=== PATIENT | male | born 1960 | race Caucasian/White ===

== ENCOUNTER 2021-02-19 09:38 | Outpatient (CLI) | payer BC, SELFPAY ==
--- NOTE | ~2021-02-19 | XR_ITS ---
XR lumbar spine min 4V DATE: 02/19/2021 09:57 INDICATION: Low back pain, with right sciatica. No injury. TECHNIQUE: AP, lateral, bilateral oblique, coned lateral lumbosacral views COMPARISON: None FINDINGS: No fracture or bone destruction is detected. There is moderate degenerative disc disease throughout the lumbar and lumbosacral spine. There is degenerative change of the apophyseal joints with associated grade 1 anterolisthesis at L4-5 The sacroiliac joints are normal. IMPRESSION: Moderate degenerative change Reviewed, dictated and finalized at location A.
== END 2021-02-19 09:39 | disposition home or self-care (01) ==
LOC: ANHIMG 09:42
PROVIDERS: PCP Family Medicine; Visit Provider Family Medicine
DX: M54.41 Lumbago with sciatica, right side (principal); M54.42 Lumbago with sciatica, left side; G89.29 Other chronic pain; M51.36 Other intervertebral disc degeneration, lumbar region
CPT/HCPCS: 72110

== ENCOUNTER 2021-04-12 07:18 | Outpatient (CLI) | payer BC, SELFPAY ==
--- NOTE | ~2021-04-12 | XR_ITS ---
EXAMINATION: XR shoulder LT min 2V EXAM DATE: 04/12/2021 07:55 INDICATION: M25.512 - Pain in left shoulder. TECHNIQUE: The following left shoulder projections obtained: frontal projection with internal rotatio n, frontal projection with external rotation, Grashey, and scapular Y view (4+ views). There is no p rior study for comparison. FINDINGS: No evidence of left shoulder rotator cuff calcific tendinosis. There is mild glenohumera l joint, mild acromioclavicular joint primary osteoarthritis. There are no acute fractures or disloca tions identified. There is no subcutaneous gas. The soft tissue is unremarkable. There are no rad iopaque foreign bodies. IMPRESSION: Mild left shoulder osteoarthritis. Reviewed, dictated and finalized at location A.
--- NOTE | ~2021-04-12 | XR_ITS ---
EXAMINATION: XR cervical spine min 6V EXAM DATE: 04/12/2021 07:55 INDICATION: M54.2 - Cervicalgia TECHNIQUE: Cervical spine frontal, lateral, lateral swimmers, and open-mouth odontoid projections. Additional lateral flexion and lateral extension projections obtained. Bilateral oblique projections . There are no prior studies for comparison. FINDINGS: There is moderate disc disease at C5-6 and C6-7, with significant uncovertebral joint arth ropathy causing narrowing of the neural foramen bilaterally. Less spondylosis at the other levels. Ve rtebral bodies are aligned on all the lateral projections. The odontoid process is intact. The later al masses of C1 line up with C2. Prevertebral soft tissue and pre-dens space are within normal limits . Lung apices are clear. IMPRESSION: Moderate spondylosis C5-6 and 6-7. Reviewed, dictated and finalized at location A.
== END 2021-04-12 07:19 | disposition home or self-care (01) ==
LOC: ANHIMG 07:24
PROVIDERS: PCP Family Medicine; Visit Provider Family Medicine
DX: M47.812 Spondylosis without myelopathy or radiculopathy, cervical region (principal); M19.012 Primary osteoarthritis, left shoulder
CPT/HCPCS: 72052; 73030

== ENCOUNTER → 2021-05-01 06:57 | Outpatient (CLI) | payer SELFPAY ==
--- NOTE | ~2021-05-01 | MR_ITS ---
EXAMINATION: MR cervical spine wo con EXAM DATE: 05/01/2021 07:43 INDICATION: Cervical radiculopathy, neck pain, left shoulder pain. TECHNIQUE: Multi-sequential, multiplanar MR images of the cervical spine were obtained without contra st. Axial T2, axial T2 MERGE sequence. Sagittal T1, T2, T2 fat saturation images also obtained. Th ere is no prior study for comparison. FINDINGS: There is moderate loss of these disc height from C5 through T1. The spinal cord signal int ensity and intrinsic morphology is normal. Cervicomedullary junction is normal in appearance. There a re no suspicious marrow signal abnormalities. Paraspinal soft tissue is unremarkable. Level by level evaluation: C2-C3: Disc does not extend beyond the endplate margin. Uncovertebral joint arthropathy: Mild to moderate right, mild left. Facet joint arthropathy: Moderate bilateral. Neural foraminal stenosis: Moderate right, mild left. Central canal stenosis: No stenosis. C3-C4: There is a mild diffuse disc bulge. Uncovertebral joint arthropathy: Moderate left, mild right. Facet joint arthropathy: Moderate left, mild to moderate right. Neural foraminal stenosis: Moderate to severe left, mild right. Central canal stenosis: Mild. C4-C5: Disc does not extend beyond the endplate margin. Uncovertebral joint arthropathy: Mild to moderate bilateral. Facet joint arthropathy: Mild to moderate bilateral. Neural foraminal stenosis: Mild bilateral. Central canal stenosis: No stenosis. C5-C6: There is a mild diffuse disc bulge. Uncovertebral joint arthropathy: Severe left, moderate to severe right. Facet joint arthropathy: Moderate bilateral . Neural foraminal stenosis: Moderate to severe bilateral. Central canal stenosis: Mild. C6-C7: There is a mild to moderate diffuse disc bulge. Uncovertebral joint arthropathy: Severe bilateral. Facet joint arthropathy: Mild bilateral. Neural foraminal stenosis: Severe left, moderate to severe right. Central canal stenosis: Mild to moderate . Central canal measures 7 mm in mid sagittal AP diameter . C7-T1: There is a mild diffuse disc bulge. Uncovertebral joint arthropathy: Moderate to severe left, moderate right. Facet joint arthropathy: Mild bilateral. Neural foraminal stenosis: Moderate to severe left, moderate right. Central canal stenosis: No stenosis. IMPRESSION: 1. Significant multilevel neural foraminal stenosis as detailed above. Reviewed, dictated and finalized at location A.
== END ==
PROVIDERS: PCP Family Medicine; Visit Provider Nurse Practitioner Adult Health
DX: M47.23 Other spondylosis with radiculopathy, cervicothoracic region (principal); M48.03 Spinal stenosis, cervicothoracic region
CPT/HCPCS: 72141

== ENCOUNTER 2021-06-24 08:42 | Outpatient (CLI) | payer BC, SELFPAY ==
--- NOTE | ~2021-06-24 | XR_ITS ---
EXAMINATION: XR knee RT 2V DATE: 06/24/2021 09:09 INDICATION: Right knee pain. TECHNIQUE: 2 views of right knee were obtained. COMPARISON: None. FINDINGS: Bone alignment is normal. No fracture. There is mild tricompartmental osteoarthritis charac terized by tiny osteophytes. No joint space narrowing. There is a small knee joint effusion. There is prepatellar and superficial infrapatellar bursitis. IMPRESSION: 1. Mild right knee osteoarthritis. 2. Small right knee joint effusion. Reviewed, dictated and finalized at location B. SYSTEMS ENGINEER
== END 2021-06-24 08:43 | disposition home or self-care (01) ==
PROVIDERS: PCP Family Medicine; Visit Provider Nurse Practitioner Family
DX: M25.461 Effusion, right knee (principal); M17.11 Unilateral primary osteoarthritis, right knee
CPT/HCPCS: 73560

== ENCOUNTER → 2022-06-30 16:32 | Outpatient (CLI) | payer BC, SELFPAY ==
--- NOTE | ~2022-06-30 | XR_ITS ---
EXAMINATION: XR chest 2V 06/30/2022 16:48 INDICATION: Acute bronchitis PROCEDURE: 2 view chest COMPARISON: No prior studies for comparison. FINDINGS: No focal airspace consolidation. There are bilateral symmetric nodular densities, likely pr ominent nipple shadows. Recommend repeat PA view of the chest with nipple markers. The cardiomediasti nal silhouette is within normal limits. There are no pleural effusions. There is no pneumothorax conrad spected. IMPRESSION: 1: NO ACUTE CARDIOPULMONARY DISEASE. 2: Bilateral symmetric nodular densities, likely prominent nipple shadows. Recommend repeat PA view o f the chest with nipple markers. Reviewed, dictated and finalized at location A. R OPERATOR IMPRESSION: 1: NO ACUTE CARDIOPULMONARY DISEASE. 2: Bilateral symmetric nodular densities, likely prominent nipple shadows. Carlito mmend repeat PA view of the chest with nipple markers.
== END ==
PROVIDERS: PCP Family Medicine; Visit Provider Family Medicine
DX: J20.9 Acute bronchitis, unspecified (principal); R91.8 Other nonspecific abnormal finding of lung field
CPT/HCPCS: 71046

== ENCOUNTER 2022-07-01 12:37 | Outpatient (CLI) | payer BC, SELFPAY ==
--- NOTE | ~2022-07-01 | XR_ITS ---
EXAMINATION: XR chest 1V 07/01/2022 12:52 INDICATION: Follow-up nodular density seen on prior chest PROCEDURE: PA view of the chest with nipple markers COMPARISON: 06/30/2022 FINDINGS: The lungs are clear. Bilateral nodular density seen on prior examination correspond to nipp le markers. No suspicious pulmonary nodules or masses. The cardiomediastinal silhouette is within nor mal limits. There are no pleural effusions. There is no pneumothorax suspected. IMPRESSION: 1: NO ACUTE CARDIOPULMONARY DISEASE. Reviewed, dictated and finalized at location A. OL CLERK
== END 2022-07-01 12:38 | disposition home or self-care (01) ==
LOC: ANHIMG 12:39
PROVIDERS: PCP Family Medicine; Visit Provider Family Medicine
DX: J20.9 Acute bronchitis, unspecified (principal)
CPT/HCPCS: 71045

== ENCOUNTER 2023-08-31 01:29 | Day surgery (SDC) | payer BC, SELFPAY ==
[2023-07-30 16:04] VITALS: BMI 23.9
--- NOTE | 2023-08-28 09:46 | SUR.PREOP ---
Patient called regarding upcoming procedure. Voicemail left regarding pt arrival date and time.
--- NOTE | 2023-08-29 15:01 | PM.HPGS ---
History of Present Illness History of Present Illness Consent: Risks, benefits, and alternatives have been discussed and questions answered. Patient agrees to proceed with procedure. Chief complaint: neoplasm screening Narrative: Naisr Lam is a 63 year old male referredd for colon cancer screening Review of Systems Review of Systems: All systems reviewed & are unremarkable except as noted in HPI and below PMFSH Past Medical History Medical History Abnormal fasting glucose Abnormal weight loss Acute bronchitis Chest x-ray was negative. Acute pain of left shoulder mild osteoarthritis left shoulder on x-ray on 04/12/2021 BMI 25.0-25.9,adult BMI 27.0-27.9,adult Body mass index (bmi) 26.0-26.9, adult (01/04/19) Chewing tobacco dependence (~1981) 1 pouch of red man daily since 24 years old Chronic anxiety Chronic low back pain with bilateral sciatica x-ray 02/19/2021 with moderate degenerative disc disease Chronic midline low back pain without sciatica Chronic nonallergic rhinitis Chronic nonallergic rhinitis Colon cancer screening normal colonoscopy at age 52. COVID-19 (08/24/21) positive test on 08/25/2021 Essential (primary) hypertension Essential hypertension Hypogonadism male Total testosterone 430 with free testosterone low at 6.8 on 12/06/2021.Total testosterone 263 with free testosterone low at 4.5 on 06/02/2022. total testosterone 683 with free testosterone 97.8 on 11/12/2022. Total testosterone 965 with free testosterone elevated at 167 with hemoglobin 16.1 on 06/12/2023. Long-term current use of testosterone replacement therapy Mixed hyperlipidemia (12/06/21) total cholesterol 217, triglycerides 114, HDL 52 and LDL 145 on 12/06/2021. Total cholesterol 176, triglycerides 124, HDL 45, LDL 108 on 11/12/2022.Cholesterol 179, HDL 40, triglycerides 125, LDL 115 with ratio 4.5 on 06/12/2023. Overweight (BMI 25.0-29.9) Plant allergic contact dermatitis Protein in urine (06/12/23) 1+ protein in urine 06/12/2023. Radiculitis of left cervical region (~03/22/21) x-ray on 04/12/2021 with moderate spondylosis C5-C6 and C6-C7 with neural foraminal arthritis and narrowing bilaterally Right knee pain Total bilirubin, elevated UTI (urinary tract infection) (~11/2022) E coli sensitive to Septra Vitamin B12 deficiency anemia Level normal at 505 with hemoglobin 17.2 on 12/06/2021. Vitamin D deficiency, unspecified Vitamin-D level low at 28 on 12/06/2021. Level low at 19.3 on 12/06/2021. Normal at 39.6 on 06/02/2022 Family History Family History Grandparent Family history of malignant neoplasm of stomach, Onset Age: 88 Mother Family history of chronic obstructive pulmonary disease, Onset Age: 65 Family history of emphysema, Onset Age: 65 Father Family history of lung cancer, Onset Age: 65 Social History Social History Smoking status: Never smoker ( chewing tobacco since age 24.) Alcohol intake: current Drinks per week: 2 Substance use: never Substance use type: does not use Lack of Transportation: No Lack of Food: Never True Current Housing: I Have Housing Concerned About Future Housing: No Difficulty Paying Gas/Electric Bills: No Difficulty Paying for Meds: No Currently Unemployed: No Education: Associate Degree Difficulty w/ Childcare or Family Care: No Living arrangements: with family Spiritual care concerns: No Meds Home Medications and Allergies Home Medications Medication Instructions Recorded Confirmed Type oxymetazoline 0.05 % nasal spray 2 spray intranasal Q12H PRN 11/27/22 07/30/23 History (Afrin (oxymetazoline)) Allergies celecoxib 200 mg capsule (Celebrex) 200 mg PO BID PRN pain #60 caps 12/15/22 07/30/23 Rx sildenafil 100 mg tablet 100 mg PO DAILY PRN sexu
[2023-08-31 08:20] VITALS: BP 134/105; PULSE 90; RESP 16; TEMP 36.5; O2SAT 99
[2023-08-31] MEDS: LACTATED RINGERS 1,000 ML 150 ML IV CONT (08:29)
--- NOTE | 2023-08-31 09:09 | WPDANESEPPF ---
Anes - Initial Pre Proc Eval Procedure: Operation Date: 08/31/23 09:30 Proposed Procedures p Screening Colonoscopy - Tawanda Godinez MD Date/Time: 08/31/23 09:09 Surgeon: Tawanda Godinez MD Pre Op Diagnosis: neoplasm screening Patient Data Age: 63 Gender: M Height: 1.83 m Weight: 79.5 kg Last Vital Signs Temp 97.7 F 08/31/23 08:20 Pulse 90 08/31/23 08:20 Resp 16 08/31/23 08:20 BP 134/105 H 08/31/23 08:20 Pulse Ox 99 08/31/23 08:20 O2 Del Method Room Air 08/31/23 08:20 Allergies Allergy/AdvReac Type Severity Reaction Status Date / Time No Known Allergies Allergy Verified 08/31/23 08:19 Home Medications Medication Instructions Recorded Confirmed Type oxymetazoline 0.05 % nasal spray 2 spray intranasal Q12H PRN 11/27/22 07/30/23 History (Afrin (oxymetazoline)) Allergies celecoxib 200 mg capsule (Celebrex) 200 mg PO BID PRN pain #60 caps 12/15/22 07/30/23 Rx sildenafil 100 mg tablet 100 mg PO DAILY PRN sexual 06/23/23 07/30/23 Rx activity #90 tabs alprazolam 0.5 mg tablet 0.5 mg PO TID PRN anxiety #90 tabs 07/01/23 07/30/23 Rx syringe with needle, safety 3 mL #50 ea 07/01/23 Rx 22 gauge x 1 testosterone cypionate 200 mg/mL 200 mg IM WEEKLY #10 mL 07/01/23 07/30/23 Rx intramuscular oil tramadol 50 mg tablet 200 mg PO BID 07/30/23 08/31/23 History Patient hx anesthesia problems: none Family hx anesthesia problems: none Results Review: All pre-operative results and documents have been reviewed as part of the pre-operative evaluation. [facility] Past Medical History Medical History (Updated 06/23/23 @ 09:01 by Morales Charles MD) Abnormal fasting glucose Abnormal weight loss Acute bronchitis Chest x-ray was negative. Acute pain of left shoulder mild osteoarthritis left shoulder on x-ray on 04/12/2021 BMI 25.0-25.9,adult BMI 27.0-27.9,adult Body mass index (bmi) 26.0-26.9, adult (01/04/19) Chewing tobacco dependence (~1981) 1 pouch of red man daily since 24 years old Chronic anxiety Chronic low back pain with bilateral sciatica x-ray 02/19/2021 with moderate degenerative disc disease Chronic midline low back pain without sciatica Chronic nonallergic rhinitis Chronic nonallergic rhinitis Colon cancer screening normal colonoscopy at age 52. COVID-19 (08/24/21) positive test on 08/25/2021 Essential (primary) hypertension Essential hypertension Hypogonadism male Total testosterone 430 with free testosterone low at 6.8 on 12/06/2021.Total testosterone 263 with free testosterone low at 4.5 on 06/02/2022. total testosterone 683 with free testosterone 97.8 on 11/12/2022. Total testosterone 965 with free testosterone elevated at 167 with hemoglobin 16.1 on 06/12/2023. Long-term current use of testosterone replacement therapy Mixed hyperlipidemia (12/06/21) total cholesterol 217, triglycerides 114, HDL 52 and LDL 145 on 12/06/2021. Total cholesterol 176, triglycerides 124, HDL 45, LDL 108 on 11/12/2022.Cholesterol 179, HDL 40, triglycerides 125, LDL 115 with ratio 4.5 on 06/12/2023. Overweight (BMI 25.0-29.9) Plant allergic contact dermatitis Protein in urine (06/12/23) 1+ protein in urine 06/12/2023. Radiculitis of left cervical region (~03/22/21) x-ray on 04/12/2021 with moderate spondylosis C5-C6 and C6-C7 with neural foraminal arthritis and narrowing bilaterally Right knee pain Total bilirubin, elevated UTI (urinary tract infection) (~11/2022) E coli sensitive to Septra Vitamin B12 deficiency anemia Level normal at 505 with hemoglobin 17.2 on 12/06/2021. Vitamin D deficiency, unspecified Vitamin-D level low at 28 on 12/06/2021. Level low at 19.3 on 12/06/2021. Normal at 39.6 on 06/02/2022 Family History Family History Grandparent Family history of malignant neoplasm of stomach, Onset Age: 88 Mother Family history of chronic obstructive pulmonary disease, Onset Age: 65
[2023-08-31 09:38] VITALS: BP 90/63; PULSE 79; RESP 16; O2SAT 99
[2023-08-31 09:48] VITALS: BP 99/66; PULSE 83; RESP 19; O2SAT 99
[2023-08-31 09:57] VITALS: BP 102/69; PULSE 84; RESP 19; O2SAT 99
== END 2023-08-31 10:07 | disposition home or self-care (01) ==
PROVIDERS: PCP Family Medicine; Visit Provider Internal Medicine Gastroenterology
PROC: 0DJD8ZZ Inspection of Lower Intestinal Tract, Via Natural or Artificial Opening Endoscopic (ICD-10-PCS; CPT 45378; principal; 2023-08-31 09:30)
DX: Z12.11 Encounter for screening for malignant neoplasm of colon (principal); K64.8 Other hemorrhoids; I10 Essential (primary) hypertension; E78.2 Mixed hyperlipidemia; F41.9 Anxiety disorder, unspecified; E53.8 Deficiency of other specified B group vitamins; E55.9 Vitamin D deficiency, unspecified; J31.0 Chronic rhinitis; G89.29 Other chronic pain; M54.42 Lumbago with sciatica, left side; M54.41 Lumbago with sciatica, right side; F17.220 Nicotine dependence, chewing tobacco, uncomplicated; Z79.891 Long term (current) use of opiate analgesic; Z79.1 Long term (current) use of non-steroidal anti-inflammatories (NSAID); Z80.1 Family history of malignant neoplasm of trachea, bronchus and lung; Z80.0 Family history of malignant neoplasm of digestive organs; Z82.49 Family history of ischemic heart disease and other diseases of the circulatory system
CPT/HCPCS: 45378; J2001; J2704; J7120

== ENCOUNTER 2024-04-21 08:19 | Outpatient (CLI) | payer BC, SELFPAY ==
--- NOTE | ~2024-04-21 | XR_ITS ---
EXAMINATION: XR finger 3rd LT min 2V DATE: 04/21/2024 08:40 INDICATION: Left third finger pain. TECHNIQUE: 3 views of left hand third digit were obtained. COMPARISON: None. FINDINGS: Alignment is normal. No fracture. There is severe osteoarthritis of third metacarpophalange al joint, mild osteoarthritis of proximal interphalangeal joint, and moderate osteoarthritis of dista l interphalangeal joint. 2 punctate densities overlie the palmar soft tissues of the third digit that may be dystrophic calcifications or foreign bodies. IMPRESSION: 1. Particular osteoarthritis. Reviewed, dictated and finalized at location A.
--- NOTE | ~2024-04-21 | XR_ITS ---
EXAMINATION: XR finger 3rd RT min 2V DATE: 04/21/2024 08:40 INDICATION: Right hand third digit pain. TECHNIQUE: 3 views of right hand third digit were obtained. COMPARISON: None. FINDINGS: Alignment is normal. No fracture. There is severe osteoarthritis of third proximal interpha langeal joint and moderate osteoarthritis of distal interphalangeal joint. There is heterotopic ossif ication at the ulnar aspect of third proximal interphalangeal joint. IMPRESSION: 1. Polyarticular osteoarthritis. Reviewed, dictated and finalized at location A.
== END 2024-04-21 08:20 | disposition home or self-care (01) ==
PROVIDERS: PCP Family Medicine; Visit Provider Nurse Practitioner Family
DX: M79.644 Pain in right finger(s) (principal); M79.645 Pain in left finger(s)
CPT/HCPCS: 73140

== ENCOUNTER 2024-04-25 09:22 | Outpatient (CLI) | payer SELFPAY ==
--- NOTE | ~2024-04-25 | MR_ITS ---
MRI of the cervical spine Clinical History: Radiculopathy Technique: Axial T2-weighted and gradient images, and sagittal T1-weighted, T2-weighted, and STIR gerry ges were acquired. COMPARISON: 05/01/2021 Findings: There is no fracture in the cervical spine. There is minimal grade 1 anterolisthesis of C5 over C6, similar to prior exam. No suspicious/focal bone marrow signal abnormality seen. At C2-C3, there is mild disc osteophyte convex with bilateral facet arthropathy. There is bilateral n eural foraminal narrowing, right worse than left. No canal stenosis or cord compression. At C3-C4, there is disc osteophyte complex, with mild canal stenosis and minimal flattening the ventr al cord. There is bilateral severe neural foraminal narrowing, with bilateral facet arthropathy. At C4-C5, there is no disc bulge or herniation. No spinal canal stenosis or cord compression. There i s bilateral facet arthropathy, with bilateral neural foraminal narrowing, left worse than right. At C5-C6, there is disc osteophyte complex, with mild canal stenosis but no amor cord compression. T here is severe bilateral neural foraminal narrowing, with bilateral facet arthropathy. At C6-C7, there is disc osteophyte complex, with moderate canal stenosis and flattening the ventral c ord. There is severe bilateral neural foraminal narrowing. No abnormal signal in the spinal cord. Paravertebral soft tissues are unremarkable. Impression: Severe degenerative spondylosis throughout the cervical spine, as detailed above. Reviewed, dictated and finalized at [facility]. Impression: Severe degenerative spondylosis throughout the cervical spine, as detailed paco lanier
== END 2024-04-25 09:23 | disposition home or self-care (01) ==
PROVIDERS: PCP Family Medicine; Visit Provider Nurse Practitioner Family
DX: M47.22 Other spondylosis with radiculopathy, cervical region (principal)
CPT/HCPCS: 72141

== ENCOUNTER 2024-06-15 08:53 | Outpatient (CLI) | payer BC, SELFPAY ==
--- NOTE | ~2024-06-15 | MR_ITS ---
Procedure: MR lumbar spine wo con Ordering provider: Tanya Tinsley, GOLF SALES MANAGER-C History: . lumbar radiculopathy . Comparison: None. Technique: MRI lumbar spine without contrast. FINDINGS: SPINAL CORD: Normal. The cord ends at the level of T12. The lateral VERTEBRAL BODIES: Normal height and alignment. No compression fracture. Normal marrow signal. DISK SPACES: Endplate changes seen at the level of L3-L4 and L5-S1. Narrowing of the disc L2-L3, L3-L 4 and L5-S1. T12-L1: Mild diffuse disc bulge. Annulus tear. L1-L2: Mild diffuse disc bulge. Annulus tear. L2-L3: Mild spinal canal stenosis. Diffuse disc bulge. Thickening of the ligamenta flava. Slight narr owing of the foramina. No definite root compression seen. Annulus tear. L3-L4: Diffuse disc bulge. Thickening of the ligamenta flava. Bilateral narrowing of the foramina. Le ft nerve root compression. L4-L5: Mild spinal canal stenosis. Annulus tear. Diffuse disc bulge. Thickening of the ligamenta flav a. Bilateral narrowing of the foramina with root compression bilaterally. Bilateral facet joint disea se. L5-S1: Diffuse disc bulge. Bilateral narrowing of the foramina with root compression. PARASPINOUS SOFT TISSUES: Normal. IMPRESSION: No compression fracture.. Multilevel degenerative disc disease with variable degrees of spinal canal stenosis, intervertebral f oraminal narrowing and with compression. Reviewed, dictated and finalized at location A. ETING OPERATIONS MANAGER IMPRESSION: No compression fracture.. Multilevel degenerative disc disease with variable degrees of spinal canal sten osis, intervertebral foraminal narrowing and with compression.
== END 2024-06-15 08:54 | disposition home or self-care (01) ==
LOC: GOSHIMG 08:54
PROVIDERS: PCP Nurse Practitioner Family; Visit Provider Nurse Practitioner Family
DX: M54.16 Radiculopathy, lumbar region (principal); M51.369 Other intervertebral disc degeneration, lumbar region without mention of lumbar back pain or lower extremity pain
CPT/HCPCS: 72148

== ENCOUNTER 2025-03-24 07:23 | Outpatient (CLI) | payer SELFPAY ==
--- NOTE | ~2025-03-24 | MR_ITS ---
MRI of the lumbar spine Clinical History: Spondylosis Technique: Axial T2-weighted images, and sagittal T1-weighted, T2-weighted, and and T2 fat-sat images were acquired. COMPARISON: 06/15/2024 Findings: No acute fracture identified. Stable osseous alignment. Stable grade 1 anterolisthesis of L2 over L3, L3 over L4, and L5 over S1. There are more pronounced type II reactive Modic signal changes about the L3-L4 and L5-S1 disc spaces. At L1-L2, there is moderate degenerative distended. There is mild disc bulge with moderate facet arthropathy. No central canal stenosis. There is no definite neural foraminal narrowing. At L2-L3, there is moderate degenerative disc narrowing. There is diffuse disc bulge with moderate facet arthropathy. There is moderate central canal stenosis/thecal sac compression. There is moderate to advanced bilateral neural foraminal narrowing. At L3-L4, there is advanced degenerative disc narrowing. There is diffuse disc bulge with advanced facet arthropathy, especially on the left side. No amor central canal stenosis. There is severe bilateral neural foraminal compress, left worse than right. At L4-L5, there is disc bulge and severe facet arthropathy. No central canal stenosis. There is moderate to advanced bilateral neural foraminal narrowing. At L5-S1, there is severe degenerative distended. There is mild diffuse disc bulge with moderate facet arthropathy. No central canal stenosis. There is severe bilateral neural foraminal narrowing. Paravertebral soft tissues are unremarkable. Impression: Advanced degenerative spondylosis, as detailed above, with multilevel neural foraminal narrowing and moderate canal stenosis at L2-L3. More pronounced Modic signal changes, as detailed above. Reviewed, dictated and finalized at [facility]. Impression: Advanced degenerative spondylosis, as detailed above, with multilevel neural fo raminal narrowing and moderate canal stenosis at L2-L3. More pronounced Modic signal changes, as detailed above.
== END 2025-03-24 07:24 | disposition home or self-care (01) ==
PROVIDERS: PCP Family Medicine; Visit Provider Neurological Surgery
DX: M47.816 Spondylosis without myelopathy or radiculopathy, lumbar region (principal)
CPT/HCPCS: 72148

== ENCOUNTER 2025-04-10 11:55 | Outpatient (CLI) | payer BC, SELFPAY ==
--- OUTSIDE RECORDS SUMMARY | 2009-02-07 09:45 | XMS_ITS | Continuity of Care Document ---
Author Organization [facility] Address [address] [place] [address] [address] [place] [address] Phone Care Team Providers Care Career Portals Teacher Name Role Phone Mendes OD, Niall Unavailable Unavailable Procedures Procedure Date Eye Exam & Treatment Refraction Advance Directives Directive Yes / No Effective Date File Name No Information Encounters Encounter Description Practice Location Reason(s) For Visit Diagnoses Date Provider Providers Copied on Encounter [facility], [address] [place] [address] [address], [place], [place], [id number], [place] tel:[phone] [facility] [place] No Information [phone] 9 Mendes OD Niall. [address] [facility] [place] , [address], [place], [address], [place]. tel:[phone] Family History Family Member Type Diagnosis Age At Onset No Information Payers Payer name Insurance type Covered republican ID Authoriza tion(s) No Information Social History Type Description Quantity Date Captured Comments Sex Male Smoking Status No Information Chief Complaint And Reason For Visit No Information Reason For Referral Reason For Referral No Information History Of Present Illness Encounter Date Complaint History Of Prese nt Illness No Information Functional Status Date Functional Assessmen t No Information Instructions Date Instruction Additional Infor mation No Information Assessments Type Assessment Date No Information Patient Care Teams Name Effective Dates (start - stop) Status Members No Information
--- NOTE | ~2025-04-10 | XR_ITS ---
Lumbar spine series Indication: Spondylosis Comparison: MRI lumbar spine 03/24/2025 Technique: 5 views lumbar spine including flexion and extension Findings: T12 with hypoplastic ribs. 5 nonrib-bearing lumbar-type vertebral bodies. No acute fracture. Grade 1 anterolisthesis of L4 on 5. Slight worsening on flexion. Slight reduction on extension. Grade 1 retrolisthesis of L1 on 2, L2-3, L3-L4. No movement with positioning. Vertebral bodies normal height. Disc spaces maintained. Moderate degenerative changes. SI joints congruent. Sacrum intact. IMPRESSION: 1. Grade 1 anterolisthesis of L4 on 5, with mild movement with flexion and extension. 2. Otherwise no evidence of instability, with multilevel retrolisthesis as above. 3. No acute abnormality. Reviewed, dictated and finalized at location R. IMPRESSION: 1. Grade 1 anterolisthesis of L4 on 5, with mild movement with flexion and ext ension. 2. Otherwise no evidence of instability, with multilevel retrolisthesis as abo ve. 3. No acute abnormality.
== END 2025-04-10 11:56 | disposition home or self-care (01) ==
LOC: ANHIMG 11:57
PROVIDERS: PCP Family Medicine; Visit Provider Neurological Surgery
DX: M47.816 Spondylosis without myelopathy or radiculopathy, lumbar region (principal)
CPT/HCPCS: 72110